=== PATIENT | female | born 1970 | race Caucasian/White ===

== ENCOUNTER 2021-08-20 14:51 | Emergency (ER) | payer MEDICARE, SELFPAY ==
[2021-08-20 15:06] VITALS: BP 134/92; PULSE 78; RESP 14; TEMP 36.4; O2SAT 98
--- NOTE | 2021-08-20 15:26 | ED.HEATRA ---
HPI - Head Injury General Chief complaint: Head Injury Stated complaint: head injury Time Seen by Provider: 08/20/21 15:13 Source: patient History of Present Illness HPI Narrative: Patient presents with head and neck pain. Reports she was at home dropped her medicine and when she bent down she struck her head on the side of the desk. The event happened in approximately 3 days ago. She was unable to get a ride to the ER initially was finally able to get 1 today so she came to the ER for further evaluation. Reports mild headache and neck pain. Reports last time that she required therapy for her neck he wanted make sure everything was okay. Denies any focal numbness or weakness denies any changes in vision or hearing. Denies use of any blood thinners. Related Data Allergies Allergy/AdvReac Type Severity Reaction Status Date / Time lidocaine Allergy Unknown Unknown Verified 08/20/21 15:35 Review of Systems Review of Systems: CONSTITUTIONAL: Denies fever, chills, or sweats. EYES: Denies visual changes, redness, or discharge. ENT: Denies rhinorrhea, congestion, sore throat, or otalgia. CARDIOVASCULAR: Denies chest pain, palpitations, or edema. RESPIRATORY: Denies cough or dyspnea. GASTROINTESTINAL: Denies abdominal pain, nausea, vomiting, or diarrhea. GENITOURINARY: Denies dysuria or hematuria. SKIN: Denies rash or itching. MUSCULOSKELETAL: Denies back pain, joint pain, or myalgia. NEUROLOGIC: Denies numbness, dizziness, or weakness. PSYCHIATRIC: Denies anxiety or depression. All systems reviewed & are unremarkable except as noted in HPI and below PMFSH Family History Family History Grandparent Carcinoma of colon Father Family history of lung cancer Social History Social History Smoking status: Never smoker Alcohol intake: current Exam Narrative: GENERAL: Well-appearing, well-nourished, and in no acute distress. HEAD: Normocephalic, atraumatic. EYES: PERRLA and EOMI. ENT: Nares clear, no rhinorrhea or epistaxis. Mucous membranes moist. NECK: Supple. No masses. No JVD. No midline tenderness moderate tenderness palpation of the cervical paraspinal muscles EXTREMITIES: Normal range of motion. No edema. SKIN: Warm, dry, no rash. NEURO: Cranial nerves II through XII are intact patient is 5 out of 5 strength in all extremities sensation intact to light touch in all extremities alert and oriented x3. PSYCH: Normal mood and affect. Course Vital Signs Vital signs: Vital Signs Temperature 36.4 C L 08/20/21 15:06 Pulse Rate 78 08/20/21 15:06 Respiratory Rate 14 08/20/21 15:06 Blood Pressure 134/92 H 08/20/21 15:06 Pulse Oximetry 98 08/20/21 15:06 Temperature 36.4 C L 08/20/21 15:06 Pulse Rate 78 08/20/21 15:06 Respiratory Rate 14 08/20/21 15:06 Blood Pressure 134/92 H 08/20/21 15:06 Pulse Oximetry 98 08/20/21 15:06 MDM - Head Injury MDM Narrative Medical decision making narrative: H&P as above, vss, pt looks clinically well, exam without focal neurological deficits, llabs/img considered, symptomatic relief available as needed, on reevaluation pt continues to looks clinically well. Suspect muscle strain and concussion, dns intracranial hemorrhage, cord compromise, fracture, neurovascular compromise. plan to tx/monitor as op w/ pcm f/u findings/plan discussed with pt, pt agree/comfortable with plan, return precautions given Discharge Plan Discharge Clinical Impression: Concussion without loss of consciousness Qualifiers: Encounter type: initial encounter Qualified Code(s): S06.0X0A - Concussion without loss of consciousness, initial encounter Neck muscle strain Qualifiers: Encounter type: initial encounter Qualified Code(s): S16.1XXA - Strain of muscle, fascia and tendon at neck level, initial encounter Patient Disposition: Home, Self-Care Condition: Improved Instru
== END 2021-08-20 15:45 | disposition home or self-care (01) ==
PROVIDERS: Emergency Provider Emergency Medicine; PCP Family Medicine
DX: S06.0X0A Concussion without loss of consciousness, initial encounter (principal); S16.1XXA Strain of muscle, fascia and tendon at neck level, initial encounter; W22.03XA Walked into furniture, initial encounter
CPT/HCPCS: 99283

== ENCOUNTER 2021-12-19 10:16 | Outpatient (CLI) | payer MEDICARE, SELFPAY ==
[2021-12-19 19:45] LABS: Basophils Percent Auto 0.6 % (0.2-1.2); Eosinophils Absolute Auto 0.3 K/mm3 (0-0.3); Eosinophils Percent Auto 4.9 % (0-4.4); Immature Granulocyte Absolute 0.01 K/mm3 (0.00-0.031); Immature Granulocyte Percent A 0.2 % (0-0.5); Lymphocytes Absolute Auto 1.48 K/mm3 (0.9-3.2); Lymphocytes Percent Auto 22.8 % (18.3-44.2); Mean Corpuscular HGB Conc 33.3 g/dl (32-36); Mean Corpuscular Hemoglobin 31.4 pg (26-34); Mean Corpuscular Volume 94.2 fl (80-100); Mean Platelet Volume 10.8 fl (7.4-10.4); Monocytes Absolute Auto 0.6 K/mm3 (0.1-0.6); Monocytes Percent Auto 9.4 % (2.6-8.5); Neutrophils Percent Auto 62.1 % (45.5-73.1); Platelet Count Result 329 k/mm3 (150-375); Red Blood Count 4.46 M/mm3 (4.2-5.4); Red Cell Distribution Width 12.9 % (11.5-14.5); White Blood Count 6.5 K/mm3 (4.5-10.0)
[2021-12-19 19:56] LABS: Alanine Aminotransferase 40 U/L (6-35); Albumin Level 4.3 g/dL (3.5-5.1); Alkaline Phosphatase 78 U/L (38-126); Anion Gap 9 mmol/L (8-16); Aspartate Amino Transferase 46 U/L (14-36); Bilirubin,Total 0.4 mg/dL (0.2-1.3); Blood Urea Nitrogen 11 mg/dL (7-17); Calcium 10.2 mg/dL (8.4-10.2); Carbon Dioxide 30 mmol/L (22-30); Chloride 102 mmol/L (98-107); Estimated Glomerular Filt Rate > 60; Glucose 98 mg/dL (65-110); Potassium 4.2 mmol/L (3.4-5.0); Sodium 141 mmol/L (137-145)
[2021-12-19 20:05] LABS: Vitamin D 25 Hydroxy 14.5 ng/mL
[2021-12-19 20:19] LABS: Hemoglobin A1C 5.2 % (<5.7)
== END 2021-12-19 10:17 | disposition home or self-care (01) ==
PROVIDERS: PCP Family Medicine; Visit Provider Family Medicine
DX: R53.83 Other fatigue (principal); R73.9 Hyperglycemia, unspecified; E55.9 Vitamin D deficiency, unspecified; E78.5 Hyperlipidemia, unspecified
CPT/HCPCS: 36415; 80053; 82306; 83036; 85025

== ENCOUNTER 2022-03-20 15:03 | Outpatient (CLI) | payer MEDICARE, SELFPAY ==
[2022-03-20 21:39] LABS: Vitamin D 25 Hydroxy 24.6 ng/mL
[2022-03-20 21:57] LABS: Hepatitis B Surface Antigen Negative (Negative)
[2022-03-20 22:03] LABS: HAV RESULT Negative (Negative); Hepatitis B Core IgM Result Negative (Negative)
[2022-03-20 22:15] LABS: Hepatitis C Virus Antibody Negative (Negative)
== END 2022-03-20 15:04 | disposition home or self-care (01) ==
LOC: ANHGOSHLAB 15:05
PROVIDERS: PCP Family Medicine; Visit Provider Family Medicine
DX: R74.8 Abnormal levels of other serum enzymes (principal); E55.9 Vitamin D deficiency, unspecified
CPT/HCPCS: 36415; 80074; 82306

== ENCOUNTER 2022-08-08 07:45 | Outpatient (CLI) | payer MEDICARE, SELFPAY ==
--- NOTE | ~2022-08-08 | US_ITS ---
EXAMINATION: US abdomen complete DATE: 08/08/2022 08:19 INDICATION: Abnormal levels of other serum enzymes TECHNIQUE: Multiple grayscale and Doppler ultrasound images of the abdomen were obtained. COMPARISON: None available FINDINGS: Bowel gas obscures visualization of the pancreas. The visualized portions of the pancreas a re unremarkable. The liver demonstrates increased echogenicity, heterogenous echotexture, and decreas ed through transmission. No surface nodularity. Normal hepatopetal flow in the main portal vein. The gallbladder is normal with no abnormal wall thickening, pericholecystic fluid or stones. The normal c ommon bile duct measures 4 mm. There was no sonographic Myers sign. The visualized portions of the a paula and inferior vena cava are normal. The spleen is normal in appearance and measures 9.4 cm. The right kidney measures 11.3 x 4.5 x 4.7 cm . The left kidney measures 9.6 x 5.0 x 5.5 cm. The kidneys demonstrate normal parenchymal echogenicit y. There is no hydronephrosis. IMPRESSION: 1. Diffuse hepatic steatosis. Reviewed, dictated and finalized at location B.
== END 2022-08-08 07:46 ==
LOC: MICIMG 07:45
PROVIDERS: PCP Family Medicine; Visit Provider Family Medicine
DX: K76.0 Fatty (change of) liver, not elsewhere classified (principal); R74.8 Abnormal levels of other serum enzymes
CPT/HCPCS: 76700

== ENCOUNTER 2023-01-08 15:03 | Outpatient (CLI) | payer MEDICARE, SELFPAY ==
[2023-01-08 19:24] LABS: Vitamin D 25 Hydroxy 32.4 ng/mL
== END 2023-01-08 15:04 | disposition home or self-care (01) ==
LOC: ANHGOSHLAB 15:05
PROVIDERS: PCP Family Medicine; Visit Provider Family Medicine
DX: E55.9 Vitamin D deficiency, unspecified (principal)
CPT/HCPCS: 36415; 82306

== ENCOUNTER 2023-02-06 08:58 | Outpatient (CLI) | payer MEDICARE, SELFPAY ==
--- NOTE | ~2023-02-06 | XR_ITS ---
XR shoulder RT min 2V 02/06/2023 09:15 INDICATION: Right shoulder pain for one month PROCEDURE: 4 views right shoulder COMPARISON: No prior studies for comparison. FINDINGS: Fracture, dislocation or subluxation is not identified. The soft tissues appear within norm al limits. No foreign bodies are identified. IMPRESSION: 1: NO ACUTE BONE OR JOINT ABNORMALITY IDENTIFIED. Reviewed, dictated and finalized at location B.
== END 2023-02-06 08:59 ==
PROVIDERS: PCP Family Medicine; Visit Provider Family Medicine
DX: M25.511 Pain in right shoulder (principal)
CPT/HCPCS: 73030

== ENCOUNTER 2023-02-25 09:30 | Outpatient (RCR) | payer MEDICARE, SELFPAY ==
--- NOTE | 2023-02-06 09:07 | PCPTNOTE ---
Pt was called today and her appointment was cancelled d/t a medical emergency of the evaluating therapist. She has been rescheduled.
[2023-02-13 12:31] VITALS: BP_SYST 110
--- NOTE | 2023-02-13 13:25 | OPREHPOC ---
Outpatient Therapy Plan of Care This is a Multidisciplinary Plan of Care that may contain components documented by all disciplines (PT, OT, and ST.) PT Problem 1 PT Problem #1 Knowledge Deficit PT Goal 1 Goal Pt to be IND with issued HEP Target Visit 4 PT Problem 2 PT Problem #2 Pain PT Goal 1 Goal Pt to report shoulder pain no greater than 4/10 in the last week. Target Visit 4 PT Goal 2 Goal Pt to report 75% improvement in overall symptoms. Target Visit 4 PT Problem 3 PT Problem #3 Impaired Range of Motion PT Goal 1 Goal Pt to improve active shoulder flexion to 130 deg. Target Visit 4 PT Goal 2 Goal Pt to improve active shoulder abduction to 120 deg Target Visit 4 PT Problem 4 PT Problem #4 Impaired Strength PT Goal 1 Goal Pt to demonstrates R shoulder strength grossly 4/5 Target Visit 4 PT Goal 2 Goal Pt to be able to lift and carry 10lb without an increase in symptoms. Target Visit 4
--- NOTE | 2023-02-13 14:30 | PTOPEVAL1 ---
Assessment and note entered by Aurea Hinton, PT, DPT Evaluation Information Assessment Status Evaluation Diagnosis R shoulder pain (M25.512, G89.29) Onset few months Subjective Information Pt states she has a long history of shoulder injuries and surgeries on her R shoulder, both injuries were over 20 years. She states her surgery was about 10-12 years ago and just in the last couple months it has started to hurt again. She reports an increase in shoulder pain with pushing/pulling motion, lifting her arm, and getting up from a low surface. She states she avoids using her arm cause she knows it will hurt. She reports her shoulder pain as a 5/10 at rest, and initially a 10/10 with activity. She reports her R hand has been going numb as well. She states in addition to the shoulder, she has knee pain and thyroid issues with unrelenting fatigue d/t this. Pt did not work. Reported Pain Level Pain Score 5: Self Report Assessment PT Clinical Summary Rachelle presents to therapy today for her initial evaluation with a diagnosis of R shoulder pain. Today she demonstrates decreased active and passive R shoulder motion when compared to her L shoulder. She demonstrates decreased functional strength. Her shoulder are forward and rounded and she has increased thoracic kyphosis. Skilled therapy services are indicated for pain management, to address ROM and strength deficits, to improve posture, and to return to PLOF. UEFI: 30/80 Plan of Care Interventions Electrical Stimulation,Hot Pack/Cold Pack,Manual Therapy,Neuro Re-education,Patient/Caregiver Educati,Therapeutic Activities,Therapeutic Exercise PT Services Indicated Yes Treatment Frequency and 1x/wk for 4 visits per pt request d/t finances Duration These treatments will address the objective and functional deficits as defined above. The patient will be advanced safely and appropriately in order for the patient to progress towards his/her prior level of function. Additional exercises will be introduced and as well as a comprehensive home exercise program upon discharge, if needed, ?to ensure carryover of functional gains achieved in the clinic. This treatment plan has been reviewed and agreement upon by the patient.
--- NOTE | 2023-02-18 12:33 | PCPTNOTE ---
Pt cancelled due to car trouble.
--- NOTE | 2023-03-02 09:52 | PCPTNOTE ---
Pt cancelled because she woke up sick this morning.
--- NOTE | 2023-03-13 08:38 | PCPTNOTE ---
Patient called & cancelled scheduled appointment this date due to being ill. She has been rescheduled.
--- NOTE | 2023-03-19 10:39 | PCPTNOTE ---
Patient did not show up for scheduled appointment this date. Called and LVM with instructions to reschedule if needed.
--- NOTE | 2023-03-26 08:24 | PTOPDC ---
Assessment and note entered by Aurea Hinton, PT, DPT Evaluation Information Assessment Status Discharge - Pt Not Present Diagnosis R shoulder pain (M25.512, G89.29) Onset few months Subjective Information Pt will be discharged at this time per the attendance policy. She cancelled 3 and no call no showed 1 appointment within a month. Called and LVM for pt to reschedule if needed after her last no show and we have not heard from her. Assessment PT Clinical Summary Rachelle completed 2 visits of skilled therapy from 02/13/23 to 03/19/23.
== END 2023-03-26 09:18 | disposition home or self-care (01) ==
LOC: ANHGOSHPT 09:30
PROVIDERS: PCP Family Medicine; Visit Provider Family Medicine
DX: M25.511 Pain in right shoulder (principal); G89.29 Other chronic pain
CPT/HCPCS: 97014; 97110; 97112; 97161; 99199; G0283

== ENCOUNTER 2023-11-11 12:09 | Outpatient (CLI) | payer MEDICARE, SELFPAY ==
--- NOTE | ~2023-11-11 | XR_ITS ---
XR knee RT min 4V Ordering provider: Barbara Myers DO History: . no recent injury bilateral knee pain . Comparison: None. FINDINGS: BONES: No acute fracture or dislocation. JOINT SPACES: Slight narrowing of the medial compartment. Marginal osteophytes seen SOFT TISSUES: Normal. IMPRESSION: No acute osseous abnormality right knee. Mild osteoarthritic changes. Reviewed, dictated and finalized at location A.
--- NOTE | ~2023-11-11 | XR_ITS ---
XR knee LT min 4V Ordering provider: Barbara Myers DO History: . no recent injury bilateral knee pain . Comparison: None. FINDINGS: BONES: No acute fracture or dislocation. JOINT SPACES: Narrowing of the medial compartment. SOFT TISSUES: Normal. IMPRESSION: No acute osseous abnormality left knee. Moderate osteoarthritic changes. Reviewed, dictated and finalized at location A.
== END 2023-11-11 12:10 ==
PROVIDERS: PCP Family Medicine; Visit Provider Family Medicine
DX: M17.0 Bilateral primary osteoarthritis of knee (principal)
CPT/HCPCS: 73564